=== PATIENT | male | born 1940 | race Caucasian/White ===

== ENCOUNTER 2022-02-12 01:27 | Day surgery (SDC) | payer MEDICARE, OTHER, SELFPAY ==
[2022-02-11 15:38] VITALS: BMI 39.5
[2022-02-12] VITALS (17 sets, daily range): BP systolic 101–171; BP diastolic 61–97; PULSE 58–71; RESP 12–20; TEMP 36.2–36.4; O2SAT 96–99; BMI 40.8
[2022-02-12 08:48] LABS: Basophils Percent Auto 0.4 % (0.2-1.2); Eosinophils Absolute Auto 0.3 K/mm3 (0-0.3); Eosinophils Percent Auto 4.2 % (0-4.4); Hematocrit 46.1 % (42.0-52.0); Hemoglobin 15.2 g/dL (14.0-18.0); Immature Granulocyte Absolute 0.02 K/mm3 (0.00-0.031); Immature Granulocyte Percent A 0.3 % (0-0.5); Lymphocytes Absolute Auto 1.12 K/mm3 (0.9-3.2); Lymphocytes Percent Auto 14.5 % (18.3-44.2); Mean Corpuscular Hemoglobin 29.8 pg (26-34); Mean Corpuscular Volume 90.4 fl (80-100); Mean Platelet Volume 10.5 fl (7.4-10.4); Monocytes Absolute Auto 0.8 K/mm3 (0.1-0.6); Monocytes Percent Auto 10.6 % (2.6-8.5); Neutrophils Absolute Auto 5.4 K/mm3 (1.3-6.7); Platelet Count Result 210 k/mm3 (150-375); Red Cell Distribution Width 12.7 % (11.5-14.5); White Blood Count 7.7 K/mm3 (4.5-10.0)
[2022-02-12 08:57] LABS: Anion Gap 3 mmol/L (8-16); Blood Urea Nitrogen 24 mg/dL (9-20); Calcium 8.8 mg/dL (8.4-10.2); Carbon Dioxide 29 mmol/L (22-30); Chloride 103 mmol/L (98-107); Estimated CRCL calculation 52 ml/min; Estimated Glomerular Filt Rate 53; Glucose 103 mg/dL (65-110); Potassium 4.4 mmol/L (3.4-5.0); Sodium 135 mmol/L (137-145)
--- NOTE | 2022-02-12 10:52 | WPDMODSED ---
Moderate Sedation Note-Pt Data Patient Data Diagnosis: coronary artery disease with previous CABG chronic angina recently accelerating Present Complaint: exertional chest pain Procedure to be performed/Plan: left heart catheterization /possible PCI Allergies Allergy/AdvReac Type Severity Reaction Status Date / Time No Known Allergies Allergy Unknown Verified 02/12/22 08:28 Home Medications Medication Instructions Recorded Confirmed Type aspirin 81 mg tablet,delayed 81 mg PO DAILY 05/31/19 02/11/22 History release (Adult Low Dose Aspirin) carvedilol 12.5 mg tablet 12.5 mg PO BID 05/31/19 02/11/22 History isosorbide mononitrate 60 mg 120 mg PO DAILY 05/31/19 02/11/22 History tablet,extended release 24 hr lisinopril 10 mg tablet 10 mg PO DAILY 05/31/19 02/11/22 History simvastatin 40 mg tablet 40 mg PO DAILY 05/31/19 02/11/22 History nitroglycerin 0.4 mg sublingual 0.4 mg sublingual Q5MIN PRN Chest 02/11/22 02/11/22 History tablet Pain Current Medications: Active Medications Sodium Chloride (Normal Saline Iv) 500 mls @ 100 mls/hr IV CONT .Q5H RONNIE Sedation/Anesthesia: No previous sedation/anesthesia problems (including family history). [facility] Past Medical History Medical History Broken arm 1989 - Left -- and elbow age 7 - Right CAD in [place] artery CKD (chronic kidney disease) stage 3, GFR 30-59 ml/min Dyslipidemia Environmental allergies Essential (primary) hypertension Surgical History Surgical History History of coronary artery bypass graft 02/2005 History of tonsillectomy and adenoidectomy age 17 History of umbilical hernia repair 1994 Family History Family History Mother Hypertension Breast cancer Social History Social History Smoking packs per day: 1 Smoking cigarettes per day: 20.0 Years smoked: 5 Smoking pack-years: 5.00 Smoking status: Former smoker Second hand tobacco smoke exposure: No Smoking end date: 02/07/69 Alcohol intake: current Alcohol use details: rare Substance use: never Substance use type: does not use Living arrangements: with family Gender identity (if verbalized by the patient): Male Sexual Orientation (if Verbalized by the Patient): Straight or Heterosexual Spiritual care concerns: No Mod Sed Physical Exam Physical Exam Pre Procedural Exam: Normal: Neck, Throat, Airway, Lungs, Heart Size, Heart Rate, Heart Rhythm, Neuro Exam and Extremities and Variation: Appearance ( obese elderly man no distress) Hours since solid foods: 12 Hours since liquid intake: 12 Mallampati Classification: class III Internal Medicine - PN: Obj Da Vital Signs Vital Signs: Vital Signs - 24 hr 02/12/22 08:45 Temperature 36.2 C L Pulse Rate 69 Respiratory Rate 17 Blood Pressure 153/97 H Pulse Oximetry 99 Oxygen Delivery Room Air Meds/Results Medications: Active Medications Generic Name Dose Route Start Last Admin Trade Name Freq PRN Reason Stop Dose Admin Sodium Chloride 500 mls @ 100 mls/hr 02/12/22 08:30 Normal Saline Iv IV CONT .Q5H RONNIE Labs 02/12/22 08:42 02/12/22 08:42 Labs: Laboratory Results - last 24 hr 02/12/22 02/12/22 08:42 08:42 WBC 7.7 RBC 5.10 Hgb 15.2 Hct 46.1 MCV 90.4 MCH 29.8 MCHC 33.0 RDW 12.7 Plt Count 210 MPV 10.5 H Immature Gran % (Auto) 0.3 Neut % (Auto) 70.0 Lymph % (Auto) 14.5 L [place] % (Auto) 10.6 H Eos % (Auto) 4.2 Baso % (Auto) 0.4 Lymph # (Auto) 1.12 [place] # (Auto) 0.8 H Eos # (Auto) 0.3 Baso # (Auto) 0.0 Abs Immat Gran (auto) 0.02 Absolute Neuts (auto) 5.4 Absolute Nucleated RBC 0.0 Nucleated RBC % 0.0 Sodium 135 L Potassium 4.4 Chloride 103 Car
--- NOTE | 2022-02-12 11:22 | PM.IMHP ---
H&P: HPI History of Present Illness Date/Time: 02/12/22 11:22 Chief Complaint: exertional chest pain Narrative: this is a 81-year-old man well known to me with a history of multivessel coronary disease who is scheduled today for follow-up angiography because of acceleration of symptoms of chronic angina. The patient has been known to have coronary disease since February of 2004 at which time multivessel disease was identified and he was referred for surgical revascularization. He received an EMILE graft to the LAD and vein grafts to his circumflex and right coronary arteries. He is known to have moderate ischemic LV dysfunction as well. He was seen recently in the office and have reported acceleration in his chronic low level of angina. He used to be able to perform activities such as housework, yd work without much trouble now he has to stop a couple of times during these activities and occasionally take nitroglycerin for relief. Because of this a follow-up angiogram has been recommended. He did have a follow-up angiogram back in 2011 when he developed a ischemic chest pain was found to have occlusion of his vein grafts to the circumflex and right coronary arteries. His EMILE to the LAD was patent at that time Review of Systems Constitutional: Constitutional: Reports no additional constitutional complaints Eyes: Eyes: Reports no additional eye complaints ENT: Reports system reviewed and no additional complaints, except as documented Cardiovascular: Cardiovascular: Reports as per HPI Respiratory: Respiratory: Reports no additional respiratory complaints Gastrointestinal: Gastrointestinal: Reports no additional gastrointestinal complaints Musculoskeletal: Musculoskeletal: Reports no additional musculoskeletal complaints Integumentary/Breasts: Skin/Breast: Reports system reviewed and no additional complaints, except as docu Neurologic: Reports system reviewed and no additional complaints, except as documented [facility] Past Medical History Medical History Broken arm 1989 - Left -- and elbow age 7 - Right CAD in [place] artery CKD (chronic kidney disease) stage 3, GFR 30-59 ml/min Dyslipidemia Environmental allergies Essential (primary) hypertension Surgical History Surgical History History of coronary artery bypass graft 02/2005 History of tonsillectomy and adenoidectomy age 17 History of umbilical hernia repair 1994 Family History Family History Mother Hypertension Breast cancer Social History Social History Smoking packs per day: 1 Smoking cigarettes per day: 20.0 Years smoked: 5 Smoking pack-years: 5.00 Smoking status: Former smoker Second hand tobacco smoke exposure: No Smoking end date: 02/07/69 Alcohol intake: current Alcohol use details: rare Substance use: never Substance use type: does not use Living arrangements: with family Gender identity (if verbalized by the patient): Male Sexual Orientation (if Verbalized by the Patient): Straight or Heterosexual Spiritual care concerns: No Meds Home Medications and Allergies Home Medications Medication Instructions Recorded Confirmed Type aspirin 81 mg tablet,delayed 81 mg PO DAILY 05/31/19 02/11/22 History release (Adult Low Dose Aspirin) carvedilol 12.5 mg tablet 12.5 mg PO BID 05/31/19 02/11/22 History isosorbide mononitrate 60 mg 120 mg PO DAILY 05/31/19 02/11/22 History tablet,extended release 24 hr lisinopril 10 mg tablet 10 mg PO DAILY 05/31/19 02/11/22 History simvastatin 40 mg tablet 40 mg PO DAILY 05/31/19 02/11/22 History nitroglycerin 0.4 mg sublingual 0.4 mg sublingual Q5MIN PRN Chest 02/11/22 02/11/22 History tablet Pain Allergies Allergy/AdvReac Type Severity
--- NOTE | 2022-02-12 11:28 | WPDCARDPROC ---
Cardiac Cath Procedure Note Date of procedure:: 02/12/22 Performing physician:: Ray Perdomo MD Indication:: acceleration of chronic angina previous surgical revascularization Brief clinical history:: this is a 81-year-old man known to have coronary disease with previous CABG back in . Chronic angina has recently accelerated resulting in the recommendation for a follow-up angiogram today. Procedure Procedure performed:: Left-sided hemodynamics coronary angiography angiography of the proximal anastomosis of saphenous vein grafts to the RCA and circumflex angiography of the left internal mammary graft to the LAD Sedation/Medication given:: fentanyl 25 mg Versed 2 mill case start time 1055 case end time 11:17 a.m. sedation provided by Jennifer Kinney RN, trained observer Access site:: right femoral artery Estimated blood loss:: 50 cc Procedure note:: patient was brought to the cardiac catheterization lab where the right femoral triangle was prepared and draped in the normal fashion. Anesthesia was provided with 1% lidocaine infiltrated locally. Using the modified Seldinger technique the femoral artery was punctured and a 5 [place]an vascular sheath was placed. After this a 5 [place] angled pigtail catheter was used to measure left-sided hemodynamics and pullback pressures across the aortic valve. I then exchanged over the guidewire in the descending aorta where the left and right coronary catheters as described below. After this the cineangiograms were reviewed and the case was terminated. An angiogram was done of the femoral artery through the sheath after which it was determined the sheath will be removed with direct manual compression. The procedure was well tolerated and uncomplicated. There was no evidence of groin hematoma when he left the cardiac catheterization lab. Findings:: Hemodynamics: Central aortic pressure is 176 over 86 left ventricle 176/8 end-diastolic pressure 18 there is no systolic gradient on pullback across the aortic valve. The left main coronary artery is medium in caliber there is high-grade 80-90% distal left main stenosis. The left anterior descending is a medium caliber artery the proximal LAD and proximal diagonal branches are free of significant disease there are mild luminal irregularities. Distal to these branches there is competitive filling seen in the LAD are arising from the EMILE graft as described below. No significant proximal LAD stenosis is seen. The circumflex is a moderate caliber artery giving rise to a 1st marginal branch and then AV groove portion. The 1st marginal branch has a proximal 90% stenosis with JUAN A 1-2 flow in that vessel distal to this due to the left main in the proximal disease in the OM. The AV groove portion of the circumflex also has 95-99% stenosis is patent to the mid AV groove portion after which it appears to be totally closed. There are no other vessels appearing to arise from this vessel. The right coronary artery is moderate caliber is giving rise to a right ventricular bifurcating vessel after which the 2nd portion of the RCA is 100% occluded. Saphenous vein graft to the right coronary artery is proximally occluded this was identified previously saphenous vein graft to the circumflex is proximally occluded this was also identified previously left internal mammary graft to the LAD shows there is a very large caliber EMILE graft is widely patent and has no significant disease proximally or into the anastomosis into the mid LAD. It fills the LAD LAD nicely down to the apex and back to the proximal segment as described above. The LAD also provides collateral filling to the RPDA through the septal perforators and a very small amount of collateral filling to a OM circumflex branch. Conclusion:: 1. Multivessel coronary artery disease including high-grade stenosis of the left main coronary artery as well as high-grade stenosi
[2022-02-12] MEDS: SODIUM CHLORIDE 0.9% IV 1,000 ML 125 ML IV CONT (15:55)
== END 2022-02-12 17:20 | disposition home or self-care (01) ==
PROVIDERS: PCP Family Medicine; Visit Provider Specialist
DX: I25.118 Atherosclerotic heart disease of native coronary artery with other forms of angina pectoris (principal); I25.718 Atherosclerosis of autologous vein coronary artery bypass graft(s) with other forms of angina pectoris; I12.9 Hypertensive chronic kidney disease with stage 1 through stage 4 chronic kidney disease, or unspecified chronic kidney disease; N18.30 Chronic kidney disease, stage 3 unspecified; E78.5 Hyperlipidemia, unspecified; Z79.82 Long term (current) use of aspirin; Z87.891 Personal history of nicotine dependence
CPT/HCPCS: 36415; 80048; 85025; 93455; C1887; C1894; J1644; J2250; J3010; J7040